=== PATIENT | female | born 1950 | race Caucasian/White ===

== ENCOUNTER → 2023-11-27 13:01 | Outpatient (REF) | payer MEDICARE, OTHER, SELFPAY | LOC: MRI 3T 13:01 | PROVIDERS: ATTENDING PHYSICIAN Student in an Organized Health Care Education/Training Program; FAMILY PHYSICIAN Internal Medicine | DX: M54.12 Radiculopathy, cervical region (principal) | CPT/HCPCS: 72141 ==

== ENCOUNTER → 2024-04-16 07:25 | Outpatient (REF) | payer MEDICARE, OTHER, SELFPAY | LOC: HWWDC 07:25 | PROVIDERS: ATTENDING PHYSICIAN Obstetrics & Gynecology Gynecology; FAMILY PHYSICIAN Internal Medicine | DX: Z12.31 Encounter for screening mammogram for malignant neoplasm of breast (principal) | CPT/HCPCS: 77063; 77067 ==

== ENCOUNTER 2024-10-18 18:32 | Emergency (ER) | payer MEDICARE, OTHER, SELFPAY ==
[2024-10-18 18:33] VITALS: BP 171/77
[2024-10-18 19:08] LABS: % Basophils 0.6 % (0-2); % Eosinophils 2.4 % (0-6); % Immature Granulocytes 0.4 % (0-0.5); % Lymphocytes 18.4 % (20.5-51.1); % Neutrophils 69.2 % (42.2-75.2); Absolute Basophils 0.1 10^3/uL (0-0.2); Absolute Eosinophils 0.2 10^3/uL (0-0.7); Absolute Lymphocytes 1.7 10^3/uL (1.2-3.4); Absolute Monocytes 0.8 10^3/uL (0.1-0.6); Absolute Neutrophils 6.3 10^3/uL (1.4-6.5); Hematocrit 35.4 % (37.0-47.0); Hemoglobin 11.6 g/dL (12.0-16.0); Mean Corp Hgb Conc. 32.8 g/dL (33.0-37.0); Mean Corpuscular Hgb 28.8 pg (27.0-31.0); Mean Corpuscular Volume 87.8 fL (81.0-99.0); Mean Platelet Volume 9.5 fL (7.4-10.4); Nucleated Red Blood Cells % 0 %; Platelet Count 309 10^3/uL (130-400); Red Blood Cell Count 4.03 10^6/uL (4.20-5.40); Red Cell Dist. Width 12.4 % (11.5-14.5); White Blood Cell Count 9.1 10^3/uL (4.8-10.8)
[2024-10-18 19:19] LABS: COVID-19 Antigen Negative (Negative)
[2024-10-18 19:22] VITALS: BMI 38.1
[2024-10-18 19:22] LABS: ALT (SGPT) 29 U/L (0-35); AST (SGOT) 34 U/L (14-36); Albumin 3.6 g/dl (3.5-5.0); Alkaline Phosphatase 142 U/L (38-126); Blood Urea Nitrogen 17 mg/dl (7-17); Calcium 9.3 mg/dl (8.4-10.2); Carbon Dioxide 33 mmol/L (22-30); Chloride 99 mmol/L (98-107); Glucose 112 mg/dl (70-99); Potassium 3.8 mmol/L (3.5-5.1); Sodium 136 mmol/L (135-145); Total Bilirubin 0.5 mg/dl (0.2-1.3); Total Protein 6.2 g/dl (6.3-8.2); eGFR > 60.00
[2024-10-18 19:25] VITALS: BP 147/65
[2024-10-18 20:00] VITALS: BP 125/56
[2024-10-18] MEDS: ROBITUSSIN AC 10 ML PO (21:19)
[2024-10-18] MEDS: DUONEB 3 ML INH (21:19)
[2024-10-18 21:22] VITALS: BP 134/62
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
[2024-10-18] MEDS: DELTASONE 50 MG PO (22:16)
[2024-10-18] MEDS: ZITHROMAX 500 MG PO (22:17)
== END 2024-10-18 22:25 | disposition home or self-care (01) ==
LOC: EMR 18:32
PROVIDERS: EMERGENCY PHYSICIAN Emergency Medicine; FAMILY PHYSICIAN Internal Medicine
DX: J20.9 Acute bronchitis, unspecified (principal); R03.0 Elevated blood-pressure reading, without diagnosis of hypertension; Z11.52 Encounter for screening for COVID-19
CPT/HCPCS: 99285; 94640; 71046; 80053; 85025; 87502; 87811; 93005

== ENCOUNTER → 2025-03-24 15:08 | Outpatient (REF) | payer MEDICARE, OTHER, SELFPAY | LOC: RAD 15:08 | PROVIDERS: ATTENDING PHYSICIAN Internal Medicine | DX: R03.0 Elevated blood-pressure reading, without diagnosis of hypertension (principal); E78.5 Hyperlipidemia, unspecified | CPT/HCPCS: 75571 ==

== ENCOUNTER → 2025-05-13 13:35 | Outpatient (REF) | payer MEDICARE, OTHER, SELFPAY | LOC: HWWDC 13:35 | PROVIDERS: ATTENDING PHYSICIAN Obstetrics & Gynecology Gynecology; FAMILY PHYSICIAN Internal Medicine | DX: Z78.0 Asymptomatic menopausal state (principal); M85.80 Other specified disorders of bone density and structure, unspecified site; Z12.31 Encounter for screening mammogram for malignant neoplasm of breast | CPT/HCPCS: 77063; 77067; 77080 ==

== ENCOUNTER → 2025-07-07 11:08 | Outpatient (REF) | payer MEDICARE, OTHER, SELFPAY | LOC: HWRAD 11:08 | PROVIDERS: ATTENDING PHYSICIAN Registered Nurse; FAMILY PHYSICIAN Internal Medicine | DX: R22.31 Localized swelling, mass and lump, right upper limb (principal) | CPT/HCPCS: 76882 ==